=== PATIENT | female | born 1990 | race Two or more races ===

== ENCOUNTER 2018-08-20 07:06 | Emergency (ER) | payer SELFPAY ==
[~2018-08-20] VITALS: Ht 162.6 cm; Wt 54.4 kg
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
[2018-08-20] MEDS ORDERED: IBUPROFEN 600 MG TABLET PO ONE ×2 (07:15→07:30)
--- NOTE | 2018-08-20 07:15 | NUR ---
REPORT GIVEN TO JOHNY BRAND FOR [facility].
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
--- NOTE | 2018-08-20 07:19 | NUR ---
pain medication motrin 600mg taken.
[2018-08-20 07:54] VITALS: BP 145/78
--- NOTE | 2018-08-20 07:55 | NUR ---
Patient discharged to home in stable condition. Written and verbal after care instructions given. Patient verbalizes understanding of instruction.
== END 2018-08-20 07:54 | disposition home or self-care (01) ==
LOC: ER 07:09
DX: T23.072A Burn of unspecified degree of left wrist, initial encounter (principal); S80.11XA Contusion of right lower leg, initial encounter; V49.69XA Unspecified car occupant injured in collision with other motor vehicles in traffic accident, initial encounter; W22.19XA Striking against or struck by other automobile airbag, initial encounter; Y93.89 Activity, other specified; Y92.413 State road as the place of occurrence of the external cause; Y99.8 Other external cause status
CPT/HCPCS: 99283; A4606; Z7610